=== PATIENT | male | born 1990 | race Caucasian/White ===

== ENCOUNTER 2019-11-08 12:30 | Outpatient (RCR) | payer MEDICARE, MEDICAID, SELFPAY ==
[2019-10-30 14:41] VITALS: BP_SYST 90
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
--- NOTE | 2019-11-16 08:54 | PCPTNOTE ---
Patient called & cancelled scheduled appointment this date due to Covid 19.
--- NOTE | 2019-11-16 10:21 | PCOTNOTE ---
Patient called and cancelled due to having a cold.
--- NOTE | 2019-11-20 09:59 | PCPTNOTE ---
Patient called & cancelled scheduled appointment this date due to Covid 19.
--- NOTE | 2019-11-22 13:37 | PCPTNOTE ---
pt did not show for today's reevaluation appt;
--- NOTE | 2019-12-10 13:06 | OTOPEVAL ---
OCCUPATIONAL THERAPY DISCHARGE NOTE 12/10/2019 Thank you for referring James Mittal to [facility]. Due to social distancing restrictions and COVID-19 pandemic, James has been unable to attend therapy since 11/08/2019. Due to these unfortunate circumstances, James will be discharged from therapy at this time. He will greatly benefit from continued skilled services when he is able to safely leave his home. Please review, sign, date and return this discharge note LUDA. I agree with and certify that the following plan of care is medically necessary. Referring Physician Date Admitting Provider: Attending Provider: Adilene Dozier, Referring Provider:
--- NOTE | 2019-12-10 15:40 | PCPTNOTE ---
PHYSICAL THERAPY DISCHARGE 12-10-2019 Attending Provider: Adilene Dozier MD Patient:James Mittal Date of :1990 James has not returned for any further treatments since 11/08/2019, due to the coronavirus, therefore he will be discharged at this time. He would benefit from continuing therapy after the social distancing restrictions are lifted. The PT goals were not assessed. Thank you for referring James to [facility]. Please review, sign, date and return this discharge summary LUDA. I have been updated about the patient's current status and I agree with discharge from the above service at this time. Referring Physician Date
== END 2019-12-11 08:32 | disposition home or self-care (01) ==
LOC: ANHOT 12:30
PROVIDERS: PCP Family Medicine; Visit Provider Family Medicine
DX: S06.9X0S Unspecified intracranial injury without loss of consciousness, sequela (principal)
CPT/HCPCS: 97014; 97110; 97113; 97116; 97140; 97163; 97166; 97530; G0283

== ENCOUNTER 2019-11-08 14:14 | Outpatient (CLI) | payer MEDICARE, MEDICAID, SELFPAY ==
--- NOTE | ~2019-11-08 | XR_ITS ---
XR shunt series 11/08/2019 14:47 Indication: Hydrocephalus Procedure: 4 views of the ventriculoperitoneal shunt Comparison: No prior studies for comparison. Findings: There is a right-sided craniotomy defect. There is a left-sided ventriculoperitoneal shunt which is unremarkable in appearance traversing the left neck, left chest extending into the right mid abdomen. No evidence for catheter discontinuity. Visualized bowel gas pattern is nonobstructive. No acute cardiopulmonary disease. There is a left-sided vascular stent in the neck. Impression: 1: Unremarkable appearing left-sided ventriculoperitoneal shunt extending into the right mid abdomen. Reviewed, dictated and finalized at location A. Impression: 1: Unremarkable appearing left-sided ventriculoperitoneal shunt extending into the right mid abdomen.
== END 2019-11-08 14:15 | disposition home or self-care (01) ==
LOC: ANHIMG 14:26
PROVIDERS: PCP Family Medicine; Visit Provider Psychiatry & Neurology Neurology
DX: G91.9 Hydrocephalus, unspecified (principal)
CPT/HCPCS: 70250; 71045; 74018; 97014; 97110; 97140; G0283

== ENCOUNTER 2020-04-18 08:46 | Outpatient (CLI) | payer MEDICARE, MEDICAID, SELFPAY ==
--- NOTE | ~2020-04-18 | CT_ITS ---
EXAMINATION: CT brain wo con EXAM DATE: 04/18/2020 10:23 INDICATION: Headache. TECHNIQUE: Spiral CT of the head was performed without contrast. Axial, coronal and sagittal images were reviewed. The dose-length product (DLP) for this examination was 605.33 mGy-cm. The exposure w as tailored according to patient size, and iterative reconstruction (ASIR) was used as additional dos e reduction technique. There is no prior study for comparison. FINDINGS: Large right-sided craniotomy. There is a ventricular shunt entering the left parietal bone and crossing the midline to the right lateral ventricle. There is severe right-sided, moderate left-s ided lateral ventricular dilation. Also 3rd ventricular dilation. There is moderate-sized old left fr ontal lobe infarction and old right subinsular infarction. There is large region of right middle cerebral artery distribution which has decreased attenuation, a ppearance is most consistent with a subacute to chronic infarction. Please clinically correlate. Ther e is no hemorrhagic conversion. No extra-axial collections. No evidence of brain mass. Imaged sinuses are well aerated. IMPRESSION: 1. Large right MCA distribution subacute to chronic infarction. 2. Moderate size old left frontal lobe infarction. 3. Ventricular dilation with stent tip at adequate position. 4. No acute findings suspected. Reviewed, dictated and finalized at location B.
--- NOTE | 2020-04-18 09:30 | NEURO_ITS ---
TEST: ELECTROENCEPHALOGRAM DIAGNOSIS: HEADACHES PATIENT NUMBER: [id number] EEG NUMBER: [id number] RECORDING DATE: 04/18/20 CONDITION OF RECORDING: Awake and drowsy EEG DESCRIPTION: Basic resting occipital frequency consists of small amount of poorly organized low voltage 8-10hz alpha over the left hemispheric linkages. Bi-hemispheric medium voltage 5-7hz theta is seen intermittently over the right hemisphere mixed with 3-4hz delta activity and multiple movement and muscle artifacts. Photic stimulation produced poor drive. Nonparoxysmal. Focal. Lateralizing. IMPRESSION: Abnormal record due to the presence of normal alpha activity over the left hemisphere posteriorly but absence of the normal background over the right hemisphere with the presence of the theta and delta activity. These abnormalities could be suggestive of underlying organic or metabolic encephalopathy with possibility of focal structural lesion. Clinical correlation recommended. There is no evidence of seizure discharge. MTDD
== END 2020-04-18 08:47 | disposition home or self-care (01) ==
PROVIDERS: PCP Family Medicine; Visit Provider Psychiatry & Neurology Neurology
DX: R51 Headache (principal); R94.01 Abnormal electroencephalogram [EEG]
CPT/HCPCS: 70450; 95816

== ENCOUNTER 2020-06-06 11:00 | Outpatient (RCR) | payer MEDICARE, SELFPAY ==
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
[2020-03-24 14:47] VITALS: BP_SYST 90
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
--- NOTE | 2020-04-07 12:53 | PCSTNOTE ---
Patient cancelled scheduled appointment this date.
--- NOTE | 2020-04-10 17:41 | STOPEVAL ---
SPEECH THERAPY PROGRESS REPORT AND PLAN OF CARE UPDATE Thank you for referring James Mittal to [facility].?Given the improvement and potential for further improvement as well as the remaining deficits, continued skilled speech therapy is recommended. The patient is scheduled to be seen for therapy? 1x/week for 4 weeks. Please review, sign, date and return this plan of care LUDA. I agree with and certify that the following plan of care is medically necessary. Referring Physician Date Attending Provider: PHYSICIAN NOT ON STAFF *ST Outpatient Evaluation Start: 03/10/20 17:05 Freq: Status: Active Protocol: Document 04/09/20 12:30 EDU (Rec: 04/10/20 17:41 BECHERERT [id number]) Therapy Assessment Status Assessment Status Assessment Status Re-evaluation Outpatient Past Medical History Past Medical History No Past Medical/Surgical History Patient/Family Denies Significant Past Medical/ Surgical History Source of Past Medical History Patient,Family/Significant Other Pain Assessment Timing of Pain Assessment Timing of Pain Assessment Assessment Self Report Self Report Pain Level 0 Pain Score Pain Score 0: Self Report Speech Therapy Teaching Adult Speech Therapy Teaching Swallowing/Communication Education Topic Cognition Home Program Topic exec fxn Topic Components Memory,Pragmatic Communication As Pertains to Compensatory Strategies, Intervention Options,Test Results Recipient(s) of Teaching Patient,Parent Learning Preferences Demonstration,Discussion,Group Instruction,One-on-One Instruction Readiness to Learn Good Teaching Method(s) Discussion,One-On-One Instruction Response(s) to Teaching Verbalizes Understanding ST Clinical Summary Clinical Summary ST Clinical Summary Pt was re evaluated using portions of the Scales of Cognitive Ability for Traumatic Brain Injury (SCATBI ). Testing includes evaluation of the areas of Perception/ Discrimination,Orientation, Organization, Recall, & Reasoning. Raw scores have been converted into percentages. Results therefore are as follows: Perception/Discrimination: 95% Orientation: 100
[2020-04-23 10:04] VITALS: BP_SYST 105
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
[2020-04-23 11:00] VITALS: O2SAT 100
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
[2020-05-26 11:00] VITALS: BP_SYST 115
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
--- NOTE | 2020-06-06 13:06 | PCOTNOTE ---
This treatment is being continued on visit number [id number]. Please see documentation on both accounts to view progress. Completed interventions, outcomes, and problems have been marked as Inactive to facilitate the copying of the Care plan routine for recurring accounts.
== END 2020-06-06 12:04 | disposition home or self-care (01) ==
LOC: ANHOT 11:00
PROVIDERS: PCP Family Medicine
DX: Z87.820 Personal history of traumatic brain injury (principal); R41.89 Other symptoms and signs involving cognitive functions and awareness
CPT/HCPCS: 92507; 96125; 97014; 97110; 97112; 97116; 97129; 97130; 97140; 97163; 97166; 97168; 97530; 97763; G0283; L3702

== ENCOUNTER 2020-08-19 14:30 | Outpatient (RCR) | payer MEDICARE, MEDICAID, SELFPAY ==
[2020-06-06 12:05] VITALS: BP_SYST 115; O2SAT 100
--- NOTE | 2020-06-06 13:08 | PCOTNOTE ---
The treatment documented on this account is a continuation of the treatment documented on visit number [id number]. Please see documentation on both accounts to view progress. The Plan of Care has been transitioned and updated within the new V#. I have addressed and agree with the discipline specific Problems, Interventions, and Goals for the current certification period. Completed interventions, outcomes, and problems have been marked as Inactive to facilitate the copying of the Care plan routine for recurring accounts.
[2020-06-23 11:08] VITALS: BP_SYST 120
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
[2020-07-17 13:05] VITALS: BP_SYST 120
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
[2020-08-19 13:35] VITALS: BP_SYST 120
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
--- NOTE | 2020-09-23 12:58 | PCOTNOTE ---
Forgot to charge electrical simulation procedure on 06/11/2020, billing office is notified
== END 2020-08-20 08:28 | disposition home or self-care (01) ==
LOC: ANHPT 14:30
PROVIDERS: PCP Family Medicine
DX: Z87.820 Personal history of traumatic brain injury (principal); R41.89 Other symptoms and signs involving cognitive functions and awareness
CPT/HCPCS: 97014; 97110; 97112; 97116; 97140; 97165; 97530; 97535; G0283; L3906